=== PATIENT | male | born 1990 | race Caucasian/White ===

== ENCOUNTER 2017-07-02 13:19 | Emergency (ER) | payer SELFPAY ==
[~2017-07-02] VITALS: Ht 182.9 cm; Wt 88.9 kg
[~2017-07-02 13:19] MED LIST: AMOXICILLIN500 MG PO; CLINDAMYCIN HC300 MG PO; FLOMAX0.4 MG PO; INDOCIN25 MG PO; KEFLEX500 MG PO; MOTRIN600 MG PO; NAPROSYN500 MG PO; NOHOMEMEDS; NORCO 5/3251 TABLET PO; PERCOCET 5/31 TABLET PO; SILVADENE20 GM TP; ZOFRAN ODT4 MG PO; ZOFRAN8 MG PO
[2017-07-02 13:33] VITALS: BP 117/87
[2017-07-02] MEDS ORDERED: PEN-VEE K,VEET500 MG PO (15:37)
[2017-07-02] MEDS ORDERED: ULTRAM50 MG PO (15:37)
== END 2017-07-02 15:48 | disposition home or self-care (01) ==
LOC: EME 13:19
DX: K08.89 Other specified disorders of teeth and supporting structures (principal)
CPT/HCPCS: 99281; 99283

== ENCOUNTER 2017-07-17 09:07 | Emergency (ER) | payer SELFPAY ==
[~2017-07-17] VITALS: Ht 182.9 cm; Wt 87.5 kg
[~2017-07-17 09:07] MED LIST changes: +PEN-VEE K,VEET500 MG PO; +ULTRAM50 MG PO
[2017-07-17 10:19] LABS: HEMATOCRIT 40.7 % (38.0-50.0); MCH 30.2 PG (29.0-34.0); MCHC 33.7 G/DL (30.0-36.0); MCV 89.8 FL (86-99); MEAN PLAT.VOLUME 10.6 uM^3 (9.0-12.4); PLATELET COUNT 218 K/uL (156-360); RBC DIS.WIDTH-CV 12.4 % (11.8-14.6); RED BLOOD COUNT 4.53 M/uL (4.00-5.50); WHITE BLOOD COUNT 15.2 K/uL (4.1-10.2)
[2017-07-17 10:30] LABS: CHLORIDE 105 mEq/L (99-109); POTASSIUM 4.1 mEq/L (3.7-5.4); SODIUM 141 mEq/L (136-147)
[2017-07-17 10:32] LABS: GLUCOSE 136 mg/dL (70-99)
[2017-07-17 10:33] LABS: ANION GAP 11 MEQ/L (2-14)
[2017-07-17 10:34] LABS: TOTAL BILIRUBIN 0.7 mg/dL (0.0-1.0)
[2017-07-17 10:35] LABS: ALKALINE PHOSPHATASE 97 IU/L (3-129)
[2017-07-17 10:36] LABS: GFR ESTIMATE (CALCULATED) > 59 mL/min/
[2017-07-17 10:37] LABS: UREA NITROGEN (BUN) 14 mg/dL (9-23)
[2017-07-17 10:39] LABS: LIPASE 8 U/L (1.0-51.0)
[2017-07-17 10:47] LABS: ADD MIUA? YES; BILIRUBIN SMALL; BLOOD LARGE; COLOR AMBER ((YELLOW)); GLUCOSE (STRIP) NEGATIVE; KETONES NEGATIVE; LEUKOCYTES NEGATIVE; NITRITE NEGATIVE; PROTEIN (STRIP) 100; SPECIFIC GRAVITY 1.026 (1.000-1.030)
[2017-07-17 11:02] LABS: BACTERIA NONE SEEN /HPF; CALCIUM OXALATE CRYSTALS 1+ /HPF; EPITHELIAL CELLS RARE /HPF; MUCUS 2+ /LPF; RED BLOOD CELLS TNTC /HPF (0-5); UCUL ADDED? YES
[2017-07-17] MEDS ORDERED: PERCOCET 5/31 TABLET PO (12:07)
[2017-07-17 12:30] VITALS: BP 128/75
== END 2017-07-17 12:30 | disposition home or self-care (01) ==
LOC: EME 09:07
PROVIDERS: Emergency Medicine
DX: N20.0 Calculus of kidney (principal); Z87.442 Personal history of urinary calculi; F17.200 Nicotine dependence, unspecified, uncomplicated
CPT/HCPCS: 80053; 81003; 83690; 85027; 87086; 99281; 99284; J1885; J2270; J2405; J3010; J7030